=== PATIENT | female | born 1995 | race Caucasian/White ===

== ENCOUNTER → 2020-11-21 | Outpatient (CLI) | payer OTHER ==
[2020-11-21 00:50] LABS: BASO % 0.3 % (0.0-2.0); EOS # 0.1 (0.0-0.7); EOS % 1.9 % (0-4.0); GRAN # 3.4 (1.4-6.5); GRAN % 53.3 % (42.2-75.2); HEMATOCRIT 38.8 % (37.0-47.0); HEMOGLOBIN 12.9 g/dl (12.5-16.0); LYMPH # 2.5 (1.2-3.4); LYMPH % 37.9 % (20.0-51.0); MEAN CELL VOLUME 92 fl (80.0-100.0); MEAN CORPUSCULAR HEMOGLOBIN 31 pg (27.0-31.0); MEAN CORPUSCULAR HGB CONC 33 g/dl (33.0-37.0); MEAN PLATELET VOLUME 9.6 fl (7.4-10.4); MONO # 0.4 (0.1-0.6); MONO % 6.3 % (1.7-9.3); PLATELET COUNT 302 K/mm3 (130-400); REDCELL DISTRIBUTION WIDTH-CV 12.4 % (11.5-14.5)
[2020-11-21 01:21] LABS: ALBUMIN 4.4 gm/dL (3.5-5.0); BILIRUBIN,TOTAL 0.3 mg/dL (0.0-1.0); CREATININE, serum 0.62 (0.52-1.25); POTASSIUM 3.7 mmol/L (3.4-5.0); TOTAL PROTEIN 7.6 gm/dL (6.4-8.2)
[2020-11-21 01:46] LABS: THYROID STIMULATING HORMONE 2.07 uIU/mL (0.465-4.680)
[2020-11-21 15:28] LABS: T3 FREE (TRI-IODOTHYRONINE) 2.6 pg/mL (1.7-3.7)
[2020-11-25 06:47] LABS: TESTOSTERONE, BIOAVAIL LC-MS 11.1 ng/dL (2.2-20.6)
== END ==
LOC: COL.LAB 00:17
DX: N94.3 Premenstrual tension syndrome (principal); F41.9 Anxiety disorder, unspecified; F32.9 Major depressive disorder, single episode, unspecified; R53.83 Other fatigue; Z83.49 Family history of other endocrine, nutritional and metabolic diseases

== ENCOUNTER 2021-06-22 18:23 | Emergency (ER) | payer OTHER ==
[~2021-06-22] VITALS: Ht 162.6 cm; Wt 71.4 kg
[2021-06-22 18:42] VITALS: TEMP 98.1
[2021-06-22 18:59] LABS: COLLECTION METHOD CLEAN CATCH
[2021-06-22 19:15] LABS: PH 7 (5-8); URINE APPEARANCE Cloudy (CLEAR/HAZY); URINE BACTERIA None Seen (NONE SEEN); URINE BILIRUBIN Negative (NEGATIVE); URINE BLOOD 3+ (NEGATIVE); URINE COLOR Red (YELLOW); URINE GLUCOSE Negative (NEGATIVE); URINE KETONE Negative (NEGATIVE); URINE LEUKOCYTE ESTERASE Negative (NEGATIVE); URINE NITRATE Negative (NEGATIVE); URINE PROTEIN(semi-quant) 2+ (NEGATIVE); URINE RBC >50 /hpf (0-2)
[2021-06-22 19:22] LABS: BASO % 0.3 % (0.0-2.0); EOS # 0.3 K/mm3 (0.0-0.7); EOS % 3.2 % (0-4.0); GRAN # 5.4 K/mm3 (1.4-6.5); GRAN % 68.2 % (42.2-75.2); HEMATOCRIT 35.5 % (37.0-47.0); HEMOGLOBIN 12.2 g/dl (12.5-16.0); LYMPH # 1.5 K/mm3 (1.2-3.4); LYMPH % 19.1 % (20.0-51.0); MEAN CELL VOLUME 88 fl (80.0-100.0); MEAN CORPUSCULAR HEMOGLOBIN 30 pg (27.0-31.0); MEAN CORPUSCULAR HGB CONC 34 g/dl (33.0-37.0); MEAN PLATELET VOLUME 9.6 fl (7.4-10.4); MONO # 0.7 K/mm3 (0.1-0.6); MONO % 8.9 % (1.7-9.3); PLATELET COUNT 254 K/mm3 (130-400); RED BLOOD COUNT 4.04 M/mm3 (4.10-5.30); REDCELL DISTRIBUTION WIDTH-CV 12.1 % (11.5-14.5)
[2021-06-22 20:22] VITALS: BP 124/78; PULSE 70
== END 2021-06-22 20:22 | disposition home or self-care (01) ==
LOC: COL.ER 18:23
PROVIDERS: Nurse Practitioner
DX: O26.891 Other specified pregnancy related conditions, first trimester (principal); R10.2 Pelvic and perineal pain; Z3A.01 Less than 8 weeks gestation of pregnancy